=== PATIENT | female | born 1960 | race African-American/Black ===

== ENCOUNTER 2017-08-14 14:09 | Emergency (ER) | payer MEDICARE, MEDICAID ==
[~2017-08-14] VITALS: Ht 180.3 cm; Wt 108.9 kg
[2017-08-14 14:19] VITALS: BP 116/71
[2017-08-14] MEDS ORDERED: WARFARIN SODIUM10 MG ORAL ×2 (14:22→16:58)
[2017-08-14] MEDS ORDERED: Lidocaine 2% Visc 15ml soln ORAL ONE (15:30)
[2017-08-14] MEDS ORDERED: Dicyclomine HCl 10mg/5ml oral soln ORAL ONE (15:30)
[2017-08-14] MEDS ORDERED: Mylanta II UD 30ml ORAL ONE (15:30)
[2017-08-14 16:09] LABS: APPEARANCE,URINE CLEAR; BILIRUBIN, URINE NEGATIVE (NEGATIVE); GLUCOSE, URINE (UA) NEGATIVE (NEGATIVE); KETONES,URINE 1+ (NEGATIVE); LEUKOCYTE ESTERASE ,URINE 1+ (NEGATIVE); NITRITE,URINE NEGATIVE (NEGATIVE); PH,URINE 5 (4.5-8.0); PROTEIN,URINE 1+ (NEGATIVE); UROBILINOGEN,URINE 1 MG/DL (0.0-1.0)
[2017-08-14 16:10] LABS: COLOR,URINE YELLOW
--- NOTE | 2017-08-14 16:56 | Emergency Room Report ---
History of Present Illness General Chief Complaint: Abdominal Pain Source: Patient Present Illness HPI 57 Yo Female presents to the ED c/o N/V/D x 5 days. hx of lupus. Denies fevers, chills, recent travel or ill contacts. Patient denies blood in the vomit or stool she denies dark tarry stools. Patient reports loose stools but denies watery diarrhea she denies recent antibiotic use. Patient states pain is worse approximately 15 minutes after oral intake. Patient reports pain is primarily midepigastric does describe some 8/10 in severity burning sensation. denies abdominal tenderness, denies THC use. States she has been taking apple cider vinegar regularly as a weight loss attempt. Denies CP, Palpitations, LOC, AMS, dizziness, Changes in Vision, Sensation, paresthesias, or a sudden severe headache. Allergies: Coded Allergies: No Known Allergies (Unverified , 08/14/17) Patient History Last Menstrual Period: menopause Nursing Documentation-[facility] Past Medical History: No History, Except For Review of Systems All Other Systems: negative except mentioned in HPI Physical Exam Vital Signs Date Time Temp Pulse Resp B/P (MAP) Pulse Ox O2 Delivery O2 Flow Rate FiO2 08/14/17 14:19 98.2 76 18 116/71 98 Room Air Sp02 EP Interpretation: reviewed, normal General Appearance: no apparent distress, alert, GCS 15, non-toxic Head: normocephalic, atraumatic ENT: hearing grossly normal, normal voice Neck: full range of motion Respiratory: chest non-tender, lungs clear, normal breath sounds, speaking full sentences Cardiovascular #1: regular rate, rhythm Gastrointestinal: normal bowel sounds, non tender, soft, no guarding, no rebound, tenderness - mild epigastric TTP to deep palpation otherwise normal abdominal exam. Genitourinary: no CVA tenderness Musculoskeletal: back normal, gait/station normal Neurologic: alert, oriented x3, responsive, motor strength/tone normal, sensory intact, normal gait, speech normal Skin: normal color, no rash, warm/dry, well hydrated Medical Decision Making PA Attestation Dr. saleh is my supervising Physician whom patient management has been discussed with. Diagnostic Impression: Primary Impression: Gastritis Qualified Codes: K29.70 - Gastritis, unspecified, without bleeding ER Course 57 Yo Female presents to the ED c/o N/V/D x 5 days. hx of lupus. Denies fevers, chills, recent travel or ill contacts. Patient denies blood in the vomit or stool she denies dark tarry stools. Patient reports loose stools but denies watery diarrhea she denies recent antibiotic use. Patient states pain is worse approximately 15 minutes after oral intake. Patient reports pain is primarily midepigastric does describe some 8/10 in severity burning sensation. denies abdominal tenderness, denies THC use. States she has been taking apple cider vinegar regularly as a weight loss attempt. Denies CP, Palpitations, LOC, AMS, dizziness, Changes in Vision, Sensation, paresthesias, or a sudden severe headache. Ddx considered but are not limited to GE, colitis, acute appy, SBO, Cyclical Vomiting secondary to THC Vital signs: pt. is afebrile, H&PE are most consistent with GE most likely viral in etiology, no evidence to suggest acute abdomen on physical exam. ORDERS: -None required at this time, the dx is clinical. -UA: no evidence of infection, few bacteria with presence of epithelial cells and no inflammatory markers. ED INTERVENTIONS: -GI Cocktail -Pepcid PO -Zofran 4mg -Patient reports her symptoms have improved with ED interventions. - D/w pt. patient to follow up with PMD in 3-5 days or return to emergency department with worsening or new symptoms. encouraged oral hydration, and BRAT diet. d/w d/c of apple cider vinegar consumption. DISCHARGE: At this time pt. is stable for d/c to home. Will provide printed patient care instructions, and any necessary prescriptions. Care plan and follow up instructions have been discussed with the patient prior to discharge. Labs Test 08/14/17 14:24 Urine Color Yellow Urine Appearance Clear Urine pH 5 (4.5-8.0) Urine Specific [place] 1.025 (1.005-1.035) Urine Protein 1+ (NEGATIVE) Urine Glucose (UA) Negative (NEGATIVE) Urine Ketones 1+ (NEGATIVE) Urine Occult Blood 1+ (NEGATIVE) Urine Nitrite Negative (NEGATIVE) Urine Bilirubin Negative (NEGATIVE) Urine Urobilinogen 1 MG/DL (0.0-1.0) Urine Leukocyte Esterase 1+ (NEGATIVE) Urine RBC 2-4 /HPF (0 - 2) Urine WBC 0-2 /HPF (0 - 2) Urine Squamous Epithelial Cells Few /LPF (NONE/OCC) Urine Calcium Oxalate Crystals Few /LPF (NONE) Urine Amorphous Sediment Few /LPF (NONE) Urine Bacteria Few /HPF (NONE) Last Vital Signs Date Time Temp Pulse Resp B/P (MAP) Pulse Ox O2 Delivery O2 Flow Rate FiO2 08/14/17 14:19 98.2 76 18 116/71 98 Room Air Disposition: HOME, SELF-CARE Condition: Stable Scripts Ondansetron* (ZOFRAN*) 4 Mg Tablet 4 MG ORAL Q6H Y for Nausea & Vomiting, #20 TAB Prov: Iris Berry 08/14/17 Mag Hydrox/Al Hydrox/Simeth (ALUM-MAG HYDROXIDE-SIMETH LIQ) 360 Ml Oral.susp 20 ML PO THREE TIMES A DAY, #360 ML Prov: Iris Berry 08/14/17 Warfarin Sod* (WARFARIN SOD*) 10 Mg Tablet 10 MG ORAL DAILY, #10 TAB Prov: Iris Berry 08/14/17 Ranitidine Hcl* (ZANTAC*) 150 Mg Tablet 150 MG ORAL TWICE A DAY for 14 Days, #28 TAB Prov: Iris Berry. 08/14/17 Patient Instructions: Abdominal Pain, Adult, Gastritis, Adult Additional Instructions: Take medications as directed. Follow up with a Primary Care Provider in 3-5 days, even if your symptoms have resolved. --Please review list of primary care clinics, if you do not already have a primary care provider Return sooner to ED if new symptoms occur, or current symptoms become worse. - Please note that this Emergency Department Report was dictated using [employer] software, occasionally this can lead to erroneous entry secondary to interpretation by the dictation equipment. Iris Berry Aug 14, 2017 16:56
[2017-08-14] MEDS ORDERED: ZANTAC150 MG ORAL (16:58)
[2017-08-14] MEDS ORDERED: ALUM-MAG HYDRO360 ML PO (16:58)
[2017-08-14] MEDS ORDERED: ZOFRAN4 M3 ORAL (16:58)
[2017-08-14 17:10] VITALS: BP 124/77
[2017-08-14 17:15] VITALS: BP 124/77
== END 2017-08-14 19:00 | disposition home or self-care (01) ==
LOC: EMR 18:40
DX: K29.70 Gastritis, unspecified, without bleeding (principal)
CPT/HCPCS: 81003; 99284